=== PATIENT | male | born 1945 | race Caucasian/White ===

== ENCOUNTER 2021-01-14 11:53 | Emergency (ER) | payer MEDICARE ==
--- NOTE | 2021-01-14 12:47 | EDM.PDOC ---
ED HPI GENERAL MEDICAL PROBLEM - General Chief Complaint: Lower Extremity Injury/Pain Stated Complaint: INFECTED LEFT INDEX TOE Time Seen by Provider: 01/14/21 12:20 Source of Information: Reports: Patient, RN History Limitations: Reports: No Limitations - History of Present Illness INITIAL COMMENTS - FREE TEXT/NARRATIVE: Devante is a very pleasant 75 year old male whom [place] during [place]. Devante presents to ER with acute onset of left second toe pain. Devante has similar pain in his right second toe 3-4 months ago, diagnosis was debated form cellulitis to gout and treatment for both was offered at various time by four different providers. Devante takes Ibuprofen 400mg 2-3 times day for daily body aches and pain with some improvement of his pain but was unable to sleep last night due to pain in the left second long toe. Devante has tried 4-5 different pairs of shoes wiht little change in his discomfort. Devante reports pain in right second toe improved but remains a bit swollen and irregular. Left Toe-Long Pain Score (Numeric/FACES): 1 - Related Data Allergies Allergy/AdvReac Type Severity Reaction Status Date / Time No Known Allergies Allergy Verified 01/14/21 12:16 Home Meds: Home Meds Colchicine 0.6 mg PO ASDIRECTED 5 Days #15 tablet 01/14/21 [Rx] Ibuprofen 800 mg PO DAILY 01/14/21 [History] amLODIPine [Norvasc] 10 mg PO DAILY 01/14/21 [History] atenoloL [Atenolol] 100 mg PO DAILY 01/14/21 [History] atorvaSTATin [Lipitor] 10 mg PO BEDTIME 01/14/21 [History] cephALEXin [Keflex] 500 mg PO Q8H 10 Days #30 cap 01/14/21 [Rx] lisinopriL [Lisinopril] 40 mg PO DAILY 01/14/21 [History] Past Medical History Cardiovascular History: Reports: High Cholesterol, Hypertension - Infectious Disease History Infectious Disease History: Reports: Chicken Pox Social & Family History - Tobacco Use Tobacco Use Status *Q: Never Tobacco User Review of Systems - Review of Systems Review Of Systems: Comprehensive ROS is negative, except as noted in HPI. ED EXAM, GENERAL - Physical Exam Exam: See Below Exam Limited By: No Limitations General Appearance: Alert, WD/WN, No Apparent Distress Eye Exam: Bilateral Eye: EOMI, Normal Inspection Ears: Hearing Grossly Normal Nose: Normal Inspection Throat/Mouth: Normal Voice, No Airway Compromise Neck: Normal Inspection, Full Range of Motion Respiratory/Chest: No Respiratory Distress, Lungs Clear, Normal Breath Sounds Cardiovascular: Regular Rate, Rhythm Extremities: Other (Right long (second) toe with residual swelling involving DPI joint. Left Long (second toe) with obvious erythema and swelling involving DIP joint. Acute pain to palpation over [place] area which seem to be localized over DIP joint and distal phalanx. Toe nail seem to be unaffected. ) Neurological: Alert, Oriented, CN II-XII Intact Psychiatric: Normal Affect, Normal Mood Skin Exam: Warm, Dry, Intact, Normal Color, No Rash Course - Vital Signs Last Recorded V/S: Last Vital Signs Temp 36.4 C 01/14/21 12:11 Pulse 81 01/14/21 12:11 Resp 18 01/14/21 12:11 BP 161/78 H 01/14/21 12:11 Pulse Ox 99 01/14/21 12:11 Departure - Departure Time of Disposition: 12:53 Disposition: Home, Self-Care 01 Clinical Impression: Toe inflammation, Gout attack, Cellulitis and abscess of foot - Discharge Information Prescriptions: Colchicine 0.6 mg PO ASDIRECTED 5 Days #15 tablet cephALEXin [Keflex] 500 mg PO Q8H 10 Days #30 cap Instructions: Arthritis, Reactive Arthritis Referrals: DOC,GEN [Other] Additional Instructions: 1. Colchicine 0.6mg tablets 2 tabs now, repeat in 1 hr today. Tomorrow take 1 tablets three time days x max 5 days. If your toe pain is due to gout your symptoms should improve in 24-36 hours. 2. Keflex 500mg every 8 hours (antibiotic) Take with meals 3 x per day x 10 days (until gone). If infection may take 5-7 days to notice an improvement. 3. Continue Ibuprofen (increase to 600mg every 8 hours am, afternoon and bedtime with snack/food. 4. You your symptoms are not improving by Thursday return to ER for repeat evaluation to discuss additional treatment plan options. 5. May consider Prednisone if not improving with this treatment plan. Sepsis Event Note (ED) - Evaluation Sepsis Screening Result: No Definite Risk - Focused Exam Vital Signs: Vital Signs Temp Pulse Resp BP Pulse Ox 01/14/21 12:11 36.4 C 81 18 161/78 H 99
== END 2021-01-14 13:05 | disposition home or self-care (01) ==
LOC: JP.ED 11:53
DX: M10.9 Gout, unspecified (principal); L03.032 Cellulitis of left toe; L02.612 Cutaneous abscess of left foot; E78.00 Pure hypercholesterolemia, unspecified; I10 Essential (primary) hypertension; Z79.899 Other long term (current) drug therapy
CPT/HCPCS: 99283